=== PATIENT | female | born 1960 | race Caucasian/White ===

== ENCOUNTER 2019-08-14 11:01 | Observation (INO) | payer MEDICARE, MEDICAID, SELFPAY ==
[2019-08-14] VITALS (10 sets, daily range): BP systolic 108–163; BP diastolic 79–100; PULSE 65–79; RESP 14–22; TEMP 36.7–37; O2SAT 92–96; BMI 42.0
--- NOTE | 2019-08-14 11:03 | ED_ITS ---
Entered by Cara Gillis, acting as scribe for Sophie Davidson Marissa HPI - Psych General: Chief Complaint: Psychiatric Symptoms Stated Complaint: mhe Time Seen by Provider: 08/14/19 11:02 Source: patient, EMS and RN notes reviewed Mode of arrival: EMS Limitations: no limitations History of Present Illness: HPI Narrative: 59 yo female presents to ED for a mental health evaluation. The patient's [id number] wanted the pateint evaluated. He said the patient was outside banging her head on the building and that she lives in deplorable conditions. The patient states she is not feeling sick now but she did just get over a cold or flu virus. She denies chronic illness. She confirmed the month/year, the president and knows that she is at [facility] [place] [facility]. MD complaint: altered mental status (reported) Onset (ago): unknown Duration: constant History of same: Yes Relieving factors: none Exacerbating factors: none Context: other (unknown) Associated psychiatric symptoms: none Associated symptoms: Reports no associated symptoms Treatments prior to arrival: none Review of Systems General: Reports: other (negative unless marked) Const: Denies: fever, chills, body aches, fatigue, malaise or diaphoresis Eyes: Denies: change in vision or blurry vision ENMT: Denies: throat pain, painful swallowing, hoarseness, ear pain, ear discharge, Change in hearing or nasal discharge Card: Denies: chest pain, palpitations, irregular heart rhythm, syncope, pre- syncope, shortness of breath on exertion or shortness of breath when lying down Resp: Denies: shortness of breath, productive cough, non-productive cough, wheezing, coughing up blood or chest congestion GI: Denies: abdominal pain, nausea, vomiting, vomiting blood, coffee grounds in vomit, diarrhea, constipation, cramping, blood in stool or black tarry stool : Denies: flank pain, painful urination, urinary frequency, urinary urgency, decreased urine ouput, urinary incontinence or blood in urine Musc: Denies: neck pain, back pain, extremity pain, extremity swelling, joint pain, joint swelling, joint warmth or joint stiffness Skin/Breast: Denies: rash, skin tenderness or yellow skin Neuro: Denies: headache, numbness in extremities, weakness in extremities, changes in sensation, lack of coordination, difficulty walking, dizziness, vertigo or confusion Endo: Denies: excessive thirst, tired all the time, cold intolerance, excessive sweating, flushing or hot flashes Robson/Lymph: Denies: easy bruising, easy bleeding, petechiae or enlarged lymph nodes All/Imm: Denies: hives, throat swelling, tongue swelling, facial swelling or acute wheezing PFSH ED PFSH: Statuses (acute, chronic, etc) shown below reflect problem list status as previously entered and may not be historically accurate Social History Smoking and tobacco status: current some day smoker Physical Exam Const: COMMON NORMALS: no apparent distress, oriented x3 and no limitations EXAM LIMITATIONS: no altered mental status GENERAL APPEARANCE: cooperative, well kempt and well developed ORIENTATION/CONSCIOUSNESS: Yes awake OTHER: Patient is disheveled and appears unkept. HENMT: COMMON NORMALS: normocephalic, head/scalp atraumatic, hearing grossly normal bilaterally, external ears normal, EAC's normal, external nose normal and moist oral mucous membranes HEAD & SCALP: normal to inspection, normocephalic and atraumatic FACE & SINUS: normal facial exam and face symmetric NOSE: external nose normal and nares normal EXTERNAL EAR: Yes external ears normal EXTERNAL AUDITORY CANAL: EAC's normal MOUTH: oral and palatal mucosa normal and tongue normal Eye: COMMON NORMALS: PERRL, EOMs intact bilaterally, conjunctivae normal and no scleral icterus GENERAL EYE: normal appearance of both eyes and normal light reflex CONJUNCTIVA: Yes conjunctivae normal SCLERA: sclerae normal CORNEA: Yes corneas normal PUPIL: Yes PERRL DIRECT OPHTHALMOSCOPY: Yes normal light reflex Neck/C-Spine: COMMON NORMALS: full ROM, no lymphadenopathy, supple, no meningeal signs and no JVD GENERAL: Yes normal visual inspection and Yes trachea midline CERVICAL SPINE: Yes cervical ROM normal Chest: COMMONS NORMALS: inspection of chest normal and palpation of chest normal Resp: COMMON NORMALS: normal respiratory effort, no retractions, no use of accessory muscles and clear to auscultation bilaterally EFFORT & INSPECTION: Yes able to speak in complete sentences AUSCULTATION: clear to auscultation bilaterally Cardio: COMMON NORMALS: no JVD, regular rate, regular rhythm, S1 normal heart sound, S2 normal heart sound, no gallops, no clicks, no murmurs and no rub JUGULAR VENOUS DISTENTION: no JVD RATE: regular rate RHYTHM: regular rhythm HEART SOUNDS: S1 normal and S2 normal GI: COMMON NORMALS: soft to palpation, non-tender, no hepatosplenomegaly and no masses INSPECTION: Yes normal to inspection PALPATION: Yes soft and Yes no hepatosplenomegaly : COMMON NORMALS: Yes no CVA tenderness BLADDER/KIDNEY EXAM: Yes no CVA tenderness Back/Pelvis: COMMON NORMALS: no CVA tenderness, thoracic and lumbar spine normal to inspection, no thoracic nor lumbar tenderness and thoraco-lumbar ROM normal Extremity: COMMON NORMALS: normal to inspection, full ROM, normal capillary refill, no joint enlargement, no clubbing, cyanosis or edema and no calf tenderness Neuro: COMMON NORMALS: oriented x3, CN's II-XII intact bilaterally, moves all extremities, no focal motor deficits and no sensory deficits noted MENINGEAL SIGNS: Yes no meningeal signs Psych: COMMON NORMALS: mental status grossly normal, thought process normal, cooperative, affect normal, speech normal and activity/motor behavior normal APPEARANCE: Yes well kempt SPEECH: Yes normal speech THOUGHT PROCESS: normal thought process Skin: COMMON NORMALS: no rashes or lesions noted, skin turgor normal, no jaundice, no petechiae and no mottling GENERAL SKIN EXAM: no rashes or lesions noted and turgor normal MDM - Psych MDM Narrative: Medical decision making narrative: I talked to the patient's [id number] over the phone who states that she is acting bizarre, talking to animals and has animals living in the house with her. She will get upset at times and will hit her head against things. I see no evidence of trauma. The patient denies all this. After talking with her at length she is agreeable to come into the hospital voluntarily to get medically cleared from a psychiatric perspective. I reviewed the case with Dr. Klein and he understands that this is a voluntary admission and he will see the patient. Currently she is cooperative and I have medically cleared her to go to psych. Lab Data: Labs: Lab Results 08/14/19 08/14/19 08/14/19 Range/Units 11:23 11:23 11:23 WBC 6.0 (4.0-10.0) 10^3/ uL RBC 4.64 (4.1-5.3) 10^6/u L Hgb 15.9 H (11.5-15.3) g/dL Hct 47.7 H (37.0-47.0) % MCV 102.8 H (81-99) fL MCH 34.3 H (28.0-34.0) pg MCHC 33.3 (30.0-36.0) g/dL RDW 12.0 L (12.1-15.1) % Plt Count 199 (130-400) 10^3/c mm MPV 9.6 (7.4-10.4) fL Neut % (Auto) 58.1 % Lymph % (Auto) 30.7 % [place] % (Auto) 9.2 % Eos % (Auto) 1.0 % Baso % (Auto) 0.5 % Neut # (Auto) 3.5 (1.8-7.7) 10^3/u L Lymph # (Auto) 1.8 (0.8-4.8) 10^3/u L [place] # (Auto) 0.6 (0.2-0.9) 10^3/u L Eos # (Auto) 0.1 (0.0-0.8) 10^3/u L Baso # (Auto) 0.0 (0.0-0.1) 10^3/u L Nucleated RBC % (a uto) 0 % Nucleated RBCs # 0.0 /100WBC PT 12.20 (10.5-13.3) SECO NDS INR 0.90 (0.8-1.2) Sodium 138 (136-145) mmol/L Potassium 4.2 (3.5-5.1) mmol/L Chloride 99 (98-107) mmol/L Carbon Dioxide 31 H (22-29) mmol/L Anion Gap 12.2 (5-19) BUN 8 (6-20) mg/dL Creatinine 0.7 (0.5-0.9) mg/dL GFR Calculation 86.2 L (90-130) mL/min Glucose 97 (74-109) mg/dL Calcium 9.6 (8.5-10.5) mg/dL Total Bilirubin 0.2 (0.15-1.2) mg/dL AST 14 (0-32) U/L ALT 16 (0-33) U/L Alkaline Phosphata se 110 H (35-105) IU/L Total Protein 7.9 (6.6-8.7) g/dL Albumin 3.9 (3.5-5.2) g/dL Globulin 4.0 (1.3-4.6) g/dL TSH 0.96 (0.27-4.20) uIU/ mL HCG, Qual (Negative) Urine Color (Yellow) Urine Appearance (CLEAR) Urine pH (5-7) Ur Specific Gravit y (1.005-1.030) Urine Protein (Negative) Urine Glucose (UA) (Normal) Urine Ketones (Negative) Urine Occult Blood (Negative) Urine Nitrate (Negative) Urine Bilirubin (NEGATIVE) Urine Urobilinogen (Negative) mg/dL Ur Leukocyte Rani ase (Negative) Salicylates < 0.3 L (3-10) mg/dL Urine Opiates Scre en (Negative) ng/mL Acetaminophen < 5.0 L (10-30) ug/mL Ur Barbiturates Sc reen (Negative) ng/mL Phenytoin 0.8 L (10-20) ug/mL Valproic Acid 2.8 L (50-100) mcg/mL Carbamazepine 2.0 L (4.0-12.0) ug/mL Ur Phencyclidine S crn (Negative) ng/mL Ur Amphetamines Sc reen (Negative) ng/mL U Benzodiazepines Scrn (Negative) ng/mL Herbster (0.6-1.2) mmol/L Urine Cocaine Scre en (Negative) ng/mL U Marijuana (THC) Screen (Negative) ng/mL Ethyl Alcohol < 10 (0-10) mg/dL 08/14/19 08/14/19 08/14/19 Range/Units 11:23 12:13 12:13 WBC (4.0-10.0) 10^3/ uL RBC (4.1-5.3) 10^6/u L Hgb (11.5-15.3) g/dL Hct (37.0-47.0) % MCV (81-99) fL MCH (28.0-34.0) pg MCHC (30.0-36.0) g/dL RDW (12.1-15.1) % Plt Count (130-400) 10^3/c mm MPV (7.4-10.4) fL Neut % (Auto) % Lymph % (Auto) % [place] % (Auto) % Eos % (Auto) % Baso % (Auto) % Neut # (Auto) (1.8-7.7) 10^3/u L Lymph # (Auto) (0.8-4.8) 10^3/u L [place] # (Auto) (0.2-0.9) 10^3/u L Eos # (Auto) (0.0-0.8) 10^3/u L Baso # (Auto) (0.0-0.1) 10^3/u L Nucleated RBC % (a uto) % Nucleated RBCs # /100WBC PT (10.5-13.3) SECO NDS INR (0.8-1.2) Sodium (136-145) mmol/L Potassium (3.5-5.1) mmol/L Chloride (98-107) mmol/L Carbon Dioxide (22-29) mmol/L Anion Gap (5-19) BUN (6-20) mg/dL Creatinine (0.5-0.9) mg/dL GFR Calculation (90-130) mL/min Glucose (74-109) mg/dL Calcium (8.5-10.5) mg/dL Total Bilirubin (0.15-1.2) mg/dL AST (0-32) U/L ALT (0-33) U/L Alkaline Phosphata se (35-105) IU/L Total Protein (6.6-8.7) g/dL Albumin (3.5-5.2) g/dL Globulin (1.3-4.6) g/dL TSH (0.27-4.20) uIU/ mL HCG, Qual Negative (Negative) Urine Color Yellow (Yellow) Urine Appearance Clear (CLEAR) Urine pH 7 (5-7) Ur Specific Gravit y 1.005 (1.005-1.030) Urine Protein Neg (Negative) Urine Glucose (UA) Norm (Normal) Urine Ketones Negative (Negative) Urine Occult Blood Neg (Negative) Urine Nitrate Negative (Negative) Urine Bilirubin Neg (NEGATIVE) Urine Urobilinogen Norm (Negative) mg/dL Ur Leukocyte Rani ase Negative (Negative) Salicylates (3-10) mg/dL Urine Opiates Scre en (Negative) ng/mL Acetaminophen (10-30) ug/mL Ur Barbiturates Sc reen (Negative) ng/mL Phenytoin (10-20) ug/mL Valproic Acid (50-100) mcg/mL Carbamazepine (4.0-12.0) ug/mL Ur Phencyclidine S crn (Negative) ng/mL Ur Amphetamines Sc reen (Negative) ng/mL U Benzodiazepines Scrn (Negative) ng/mL Herbster 0.1 L (0.6-1.2) mmol/L Urine Cocaine Scre en (Negative) ng/mL U Marijuana (THC) Screen (Negative) ng/mL Ethyl Alcohol (0-10) mg/dL 08/14/19 Range/Units 12:13 WBC (4.0-10.0) 10^3/ uL RBC (4.1-5.3) 10^6/u L Hgb (11.5-15.3) g/dL Hct (37.0-47.0) % MCV (81-99) fL MCH (28.0-34.0) pg MCHC (30.0-36.0) g/dL RDW (12.1-15.1) % Plt Count (130-400) 10^3/c mm MPV (7.4-10.4) fL Neut % (Auto) % Lymph % (Auto) % [place] % (Auto) % Eos % (Auto) % Baso % (Auto) % Neut # (Auto) (1.8-7.7) 10^3/u L Lymph # (Auto) (0.8-4.8) 10^3/u L [place] # (Auto) (0.2-0.9) 10^3/u L Eos # (Auto) (0.0-0.8) 10^3/u L Baso # (Auto) (0.0-0.1) 10^3/u L Nucleated RBC % (a uto) % Nucleated RBCs # /100WBC PT (10.5-13.3) SECO NDS INR (0.8-1.2) Sodium (136-145) mmol/L Potassium (3.5-5.1) mmol/L Chloride (98-107) mmol/L Carbon Dioxide (22-29) mmol/L Anion Gap (5-19) BUN (6-20) mg/dL Creatinine (0.5-0.9) mg/dL GFR Calculation (90-130) mL/min Glucose (74-109) mg/dL Calcium (8.5-10.5) mg/dL Total Bilirubin (0.15-1.2) mg/dL AST (0-32) U/L ALT (0-33) U/L Alkaline Phosphata se (35-105) IU/L Total Protein (6.6-8.7) g/dL Albumin (3.5-5.2) g/dL Globulin (1.3-4.6) g/dL TSH (0.27-4.20) uIU/ mL HCG, Qual (Negative) Urine Color (Yellow) Urine Appearance (CLEAR) Urine pH (5-7) Ur Specific Gravit y (1.005-1.030) Urine Protein (Negative) Urine Glucose (UA) (Normal) Urine Ketones (Negative) Urine Occult Blood (Negative) Urine Nitrate (Negative) Urine Bilirubin (NEGATIVE) Urine Urobilinogen (Negative) mg/dL Ur Leukocyte Rani ase (Negative) Salicylates (3-10) mg/dL Urine Opiates Scre en Negative (Negative) ng/mL Acetaminophen (10-30) ug/mL Ur Barbiturates Sc reen Negative (Negative) ng/mL Phenytoin (10-20) ug/mL Valproic Acid (50-100) mcg/mL Carbamazepine (4.0-12.0) ug/mL Ur Phencyclidine S crn Negative (Negative) ng/mL Ur Amphetamines Sc reen Negative (Negative) ng/mL U Benzodiazepines Scrn Negative (Negative) ng/mL Herbster (0.6-1.2) mmol/L Urine Cocaine Scre en Negative (Negative) ng/mL U Marijuana (THC) Screen Negative (Negative) ng/mL Ethyl Alcohol (0-10) mg/dL Imaging Data^: CXR: Radiologist's impression: [address] [address] XRay Report Signed Patient: Aiyana Neri #: [id number] : 2Acct#:[id number] Age/Sex: 59 / FADM Date: 08/14/19 Loc: ERRoom/Bed: Attending Dr: Ordering Provider/Ordering MD: Sophie Davidson DO Date of Service: 08/14/19 Procedure(s): XR chest 1V portable [id number] Accession Number(s): [id number] Report Number: [id number] WS: [id number] CHEST XRAY TECHNIQUE: Portable chest. CLINICAL INFORMATION: COUGH COMPARISON: August 01, 2017 FINDINGS: Heart: Cardiomegaly. Lungs: Lungs are clear. No consolidation or pleural effusion. No acute pulmonary infiltrates. Bones: Normal visualized bony structures. XR/XR chest 1V portable [id number] IMPRESSION: Cardiomegaly. No acute chest findings. Dictated By:Vipul Oates MD Signed By:Vipul Oates MDSigned Date/Time:08/14/19 1153 DD/ EKG Data^: EKG 1: EKG interpretation date: 08/14/19 EKG interpretation time: 11:44 Interpretation: Normal sinus rhythm at 65 beats a minute, nonspecific ST-T wave changes, normal intervals, no blocks, nonspecific ST-T wave changes. Discharge Plan Discharge Patient Disposition: Placed in Observation Admit Provider: Shane Klein Clinical Impression: Bizarre behavior Condition: Stable Referrals: MALISSA OLIVARES [Family Provider] - Discharge Date/Time: 08/14/19 15:18 Coding Level of Care Code ED Printing Press Operator for Chg Fwd Exam Problem Focused The documentation recorded by the Carlin bee Valerie R, accurately reflects the service I personally performed and the decisions made by Stuart watson Eli N
--- NOTE | 2019-08-14 11:08 | XR_ITS ---
WS: [id number] CHEST XRAY TECHNIQUE: Portable chest. CLINICAL INFORMATION: COUGH COMPARISON: August 01, 2017 FINDINGS: Heart: Cardiomegaly. Lungs: Lungs are clear. No consolidation or pleural effusion. No acute pulmonary infiltrates. Bones: Normal visualized bony structures. XR/XR chest 1V portable [id number] IMPRESSION: Cardiomegaly. No acute chest findings.
--- NOTE | 2019-08-14 11:08 | ECG_ITS ---
Measurements Intervals [place] Rate: 65 P: 49 FL: 141 QRS: 5 QRSD: 98 T: 43 QT: 415 QTc: 434 SINUS RHYTHM NONSPECIFIC T-WAVE ABNORMALITY Compared to ECG 08/01/2017 13:36:16 Left-axis deviation no longer present Left ventricular hypertrophy no longer present T-wave abnormality still present Electronically Signed On 08-14-2019 20:14:11 SPRAY BLENDER by Jim Ramsey M.D. [id number]
--- NOTE | 2019-08-14 11:14 | PC.NURSE ---
pt was not placed in a psych safe room and her clothes were not changed d/t the fact that she was not having SI or HI
[2019-08-14 11:29] LABS: Basophils % 0.5 %; Eosinophils # 0.1 10^3/uL (0.0-0.8); Hematocrit 47.7 % (37.0-47.0); Hemoglobin 15.9 g/dL (11.5-15.3); Lymphocytes # 1.8 10^3/uL (0.8-4.8); Lymphocytes % 30.7 %; Mean Corpuscular HGB Conc 33.3 g/dL (30.0-36.0); Mean Corpuscular Hemoglobin 34.3 pg (28.0-34.0); Mean Corpuscular Volume 102.8 fL (81-99); Mean Platelet Volume 9.6 fL (7.4-10.4); Monocytes # 0.6 10^3/uL (0.2-0.9); Monocytes % 9.2 %; Neutrophils # 3.5 10^3/uL (1.8-7.7); Neutrophils % 58.1 %; Nucleated Red Blood Cells % 0 %; Platelet Count 199 10^3/cmm (130-400); Red Blood Count 4.64 10^6/uL (4.1-5.3)
[2019-08-14 11:56] LABS: Alanine Aminotransferase 16 U/L (0-33); Albumin Level 3.9 g/dL (3.5-5.2); Alkaline Phosphatase 110 IU/L (35-105); Anion Gap 12.2 (5-19); Aspartate Amino Transferase 14 U/L (0-32); Blood Urea Nitrogen 8 mg/dL (6-20); Calcium 9.6 mg/dL (8.5-10.5); Carbon Dioxide 31 mmol/L (22-29); Chloride 99 mmol/L (98-107); Glomerular Filtration Rate 86.2 mL/min (90-130); Glucose 97 mg/dL (74-109); Phenytoin Dilantin 0.8 ug/mL (10-20); Potassium 4.2 mmol/L (3.5-5.1); Sodium 138 mmol/L (136-145); Thyroid Stimulating Hormone 0.96 uIU/mL (0.27-4.20); Total Bilirubin 0.2 mg/dL (0.15-1.2); Total Protein 7.9 g/dL (6.6-8.7); Valproic Acid Level 2.8 mcg/mL (50-100)
[2019-08-14 11:57] LABS: Lithium 0.1 mmol/L (0.6-1.2)
[2019-08-14 12:03] LABS: Acetaminophen < 5.0 ug/mL (10-30); Alcohol Level < 10 mg/dL (0-10); Salicylate < 0.3 mg/dL (3-10)
[2019-08-14 12:25] LABS: Add Urine Microscopic? NO
[2019-08-14 12:30] LABS: Bilirubin Urine Neg (NEGATIVE); Blood Urine Neg (Negative); Glucose Urine UA Norm (Normal); Ketones Urine Negative (Negative); Leukocyte Esterase Urine Negative (Negative); Nitrate Urine Negative (Negative); Protein Urine Neg (Negative); Specific Gravity, Urine 1.005 (1.005-1.030); Urine Appearance Clear (CLEAR); Urine Color Yellow (Yellow); Urobilinogen Urine Norm (Negative); pH Urine 7 (5-7)
[2019-08-14 12:31] LABS: HCG Qualitative Urine. Negative (Negative)
[2019-08-14 12:49] LABS: Amphetamines Screen Urine Negative (Negative); Barbiturates Screen Urine Negative (Negative); Benzodiazepines Screen Urine Negative (Negative); Cocaine Screen Urine Negative (Negative); Opiate Screen Urine Negative (Negative); PCP Screen Urine Negative (Negative); THC Screen Urine Negative (Negative)
[2019-08-14] MEDS: risperiDONE 0.25 mg Tablet 0.5 MG PO (18:38)
[2019-08-15 06:00] VITALS: BP 137/81; PULSE 62; RESP 19; TEMP 36.5; O2SAT 90
[2019-08-15] MEDS: atorvastatin 40 mg Tablet 20 MG PO (09:24)
[2019-08-15] MEDS: metformin XR 500 MG Tablet PO (09:24)
[2019-08-15] MEDS: risperiDONE 0.25 mg Tablet 0.5 MG PO (09:24)
--- NOTE | 2019-08-15 10:25 | P.HP_ITS ---
Providers/Chief Complaint Admitting Physician: Shane Klein MD Chief Complaint: BIZARRE BEHAVIOR HPI NPU History of Present Illness Aiyana Neri is a 59 year old female known to the [facility] from the previous hospitalizations and treatment presented to the emergency room on 96 hour hold reporting aggressive behavior which was not witnessed by the emergency room doctor. She was admitted on the 96 hour hold to the NPU for evaluation. Calls were made to verify the legitimacy of the claims in the hold and this was not accomplished. She was able to speak to the concerns in the affidavit, has recently had a medication follow-up with Mrs. Goss. In left follow-up there were no concerns raised and the medication was reportedly working fine. Social work investigation revealed that she is living in a trailer near her sister which is on by her [id number]. Reportedly she pays rent with her disability check which was done again this month. There are no signs of significant changes based on that med none. She denies any lethality, psychosis, depression, decompensation or any concerns that she would want addressed. She denies any changes not captured in her recent notes at [facility]. She had lived at [place] but left there for reasons we are unclear about. The reports do not suggest that she is living in disarray though we did have a discussion about getting case management so that someone is keeping tabs on any changes in her ability to manage her self-care and ADLs.. Psychiatric history: She's had multiple hospitalizations going back may be 15 years. She's had different medications but has recently been stable on his current medication for some time. Substance abuse history: She denies significant cigarette, alcohol, marijuana or any other illicit drug use. She denies ever having a rehabilitation for a DUI. Aiyana reports she has 5 brothers and 1 sister. She reports she is and has 2 children a daughter born in and a son born in . She reports she receives disability income for schizophrenia. 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 Per her last inpatient evaluation: History of Present Illness Date of Service: Aug 02, 2017 Chief Complaint: Acute psychosis HPI: Ms. Neri is a 57-year-old female who was brought in by ambulance after a welfare check was done by the police. Per affidavit from the [facility]'s department, upon entering the patient's home was found that her residence was overwhelmed with Feces and that the patient did not respond to her name directly. It appeared that she was able to ambulate to the ambulance. It appears that her living conditions are quite deplorable. Patient does live with her , who reported at this time the do not have any running water. Her presentation today the patient is lying comfortable in bed, and even after 2 glasses appears that she continues with significant older that is permeated her skin. She is cooperative with the interview she is able to respond to her name, and she knows that she is [facility]. She is aware that the years 2018 but misses the date. The course of the interview while she responds to some increase, she phase response to others, and at times there are new low to symptoms in response to standard questions. Her thought process seems somewhat disorganized as well. She is able to say that she is not experiencing auditory hallucinations, although she appears to be responding to internal stimuli. She denies any suicidal ideation. Meds NPU Home Medications Medication Instructions Recorded Confirmed Type atorvastatin 20 mg PO DAILY 08/14/19 08/14/19 History metformin 500 mg PO DAILY 08/14/19 08/14/19 History risperidone 0.5 mg PO BID 08/14/19 08/14/19 History Allergies Allergy/AdvReac Type Severity Reaction Status Date / Time No Known Allergies Allergy Verified 08/14/19 11:10 [facility] NPU PFS: Statuses (acute, chronic, etc) shown below reflect problem list status as previously entered and may not be historically accurate Social History Smoking and tobacco status: current some day smoker Mental Status Exam MSE Comments: This is an obese white female possibly morbidly obese with adequate dress limited grooming and eye contact. Poor hygiene with some body odor but possibly due to inability to wash herself due to her size. She has clear hirsutism on her upper lip and chin. No abnormal movements except for mild psychomotor retardation. Cooperative with exam in no acute distress. Speech was slightly decreased rate and volume. Mood described as pretty good, affect slightly subdued. Thought process organized. Thought content: Patient denied any suicidal or homicidal ideation, there were no delusions reported are noted, she denied any auditory or visual hallucinations. Attention and concentration were intact and memory appeared reliable but none were formally tested. She is alert and oriented ?3. Insight and judgment appeared fair. Vitals/I&O/Wt Last Vital Signs Temp 98.3 F 08/15/19 14:00 Pulse 60 08/15/19 14:00 Resp 18 08/15/19 14:00 BP 105/72 08/15/19 14:00 Pulse Ox 92 08/15/19 14:00 Weight last 48 hrs Weight 107.501 kg Data NPU : 08/14/19 11:23 08/14/19 11:23 A&P Assessment and plan (1) Schizophrenia: This is a 59-year-old white female with a clear history of schizophrenia with inpatient hospitalizations in treatments with her last hospitalization in July 2017 who presents with a [address] but without behaviors consistent with the 96 hour hold reporting a desire to return back to her home and continue life as she had been living. She is consistent with her outpatient follow-up and there were no issues raised at her last appointment. 1. Continue current medication. 2. Seeking collateral information to determine whether there is no reason to continue 96 hour hold or this hospitalization. 3. Encourage individual, group and milieu therapy. 4. Continue every 15 minute checks for safety. 5. Will consider discharge today and less clear indication of imminent risk to self or others exists. Status: Acute Code(s): F20.9 - Schizophrenia, unspecified Involuntary Hold Information 96 Hour Hold: 96 Hour Involuntary Admission: No Attestations NPU Medical Necessity Statement*: Inpatient hospitalization does not appear to be medically necessary at this time. We will alert outpatient provider to allow for earlier than usual follow-up appointment. Will continue current medications. Discharge to home. Coding Level of Care Code Acute Case Advocate for Samantha Hamilton Diagnoses Schizophrenia F20.9
[2019-08-15 14:00] VITALS: BP 105/72; PULSE 60; RESP 18; TEMP 36.8; O2SAT 92
--- NOTE | 2019-08-15 16:56 | PM.NDC ---
Diagnoses at Discharge Discharge Diagnosis (1) Schizophrenia: Status: Acute Reason for Visit Reason for Visit: Reason For Visit: BIZARRE BEHAVIOR Brief History: HPI NPU History of Present Illness Aiyana Neri is a 59 year old female known to the [facility] from the previous hospitalizations and treatment presented to the emergency room on 96 hour hold reporting aggressive behavior which was not witnessed by the emergency room doctor. She was admitted on the 96 hour hold to the NPU for evaluation. Calls were made to verify the legitimacy of the claims in the hold and this was not accomplished. She was able to speak to the concerns in the affidavit, has recently had a medication follow-up with Mrs. Goss. In left follow-up there were no concerns raised and the medication was reportedly working fine. Social work investigation revealed that she is living in a trailer near her sister which is on by her [id number]. Reportedly she pays rent with her disability check which was done again this month. There are no signs of significant changes based on that med none. She denies any lethality, psychosis, depression, decompensation or any concerns that she would want addressed. She denies any changes not captured in her recent notes at [facility]. She had lived at [place] but left there for reasons we are unclear about. The reports do not suggest that she is living in disarray though we did have a discussion about getting case management so that someone is keeping tabs on any changes in her ability to manage her self-care and ADLs.. Psychiatric history: She's had multiple hospitalizations going back may be 15 years. She's had different medications but has recently been stable on his current medication for some time. Substance abuse history: She denies significant cigarette, alcohol, marijuana or any other illicit drug use. She denies ever having a rehabilitation for a DUI. Aiyana reports she has 5 brothers and 1 sister. She reports she is and has 2 children a daughter born in and a son born in . She reports she receives disability income for schizophrenia. 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 Per her last inpatient evaluation: History of Present Illness Date of Service: Aug 02, 2017 Chief Complaint: Acute psychosis HPI: Ms. Neri is a 57-year-old female who was brought in by ambulance after a welfare check was done by the police. Per affidavit from the [facility]'s department, upon entering the patient's home was found that her residence was overwhelmed with Feces and that the patient did not respond to her name directly. It appeared that she was able to ambulate to the ambulance. It appears that her living conditions are quite deplorable. Patient does live with her , who reported at this time the do not have any running water. Her presentation today the patient is lying comfortable in bed, and even after 2 glasses appears that she continues with significant older that is permeated her skin. She is cooperative with the interview she is able to respond to her name, and she knows that she is [facility]. She is aware that the years 2018 but misses the date. The course of the interview while she responds to some increase, she phase response to others, and at times there are new low to symptoms in response to standard questions. Her thought process seems somewhat disorganized as well. She is able to say that she is not experiencing auditory hallucinations, although she appears to be responding to internal stimuli. She denies any suicidal ideation. Hospital Course Hospital Course Aiyana presented to the emergency room at mid-concerns that she was having bizarre behaviors. She was admitted to the neuropsych unit to evaluate these concerns as the emergency room was unable to get confirmation or rebuttal of the concerns. On the unit she acclimated to the individual, group and milieu therapies provided. Her medications were continued without incident. During the hospitalization she had routine laboratory studies were within normal limits except for a few outliers. Additionally she had a general medical evaluation which was within normal limits and revealed no new acute processes. Discharge Summary At the time of discharge she was absent lethality, her mood and anxiety were well managed and she was absent signs of psychosis. She endorsed the plan to avoid any drugs of abuse and follow-up with outpatient services as recommended. She was evaluated and deemed to be absence any credible lethality and revealed no symptoms requiring being put on a 96 hour hold so she was allowed to discharge. Involuntary Hold Information 96 Hour Hold: 96 Hour Involuntary Admission: No Mental Status Exam MSE Comments: This is an obese white female possibly morbidly obese with adequate dress limited grooming and eye contact. Poor hygiene with some body odor but possibly due to inability to wash herself due to her size. She has clear hirsutism on her upper lip and chin. No abnormal movements except for mild psychomotor retardation. Cooperative with exam in no acute distress. Speech was slightly decreased rate and volume. Mood described as pretty good, affect slightly subdued. Thought process organized. Thought content: Patient denied any suicidal or homicidal ideation, there were no delusions reported are noted, she denied any auditory or visual hallucinations. Attention and concentration were intact and memory appeared reliable but none were formally tested. She is alert and oriented ?3. Insight and judgment appeared fair. Discharge Data Data Completed and Pending: Completed Studies During Hospitalization Category Date Time Status XR chest 1V prasanna ble [id number] Urgent Exams 08/14/19 11:08 Completed Vitals: Last Vital Signs Temp 98.3 F 08/15/19 14:00 Pulse 60 08/15/19 14:00 Resp 18 08/15/19 14:00 BP 105/72 08/15/19 14:00 Pulse Ox 92 08/15/19 14:00 Discharge Plan Discharge Patient Disposition: Home, Self-Care Condition: Stable Prescriptions: Continued atorvastatin 20 mg tablet 20 mg PO DAILY RF: 0 metformin 500 mg tablet extended release 24 hr 500 mg PO DAILY RF: 0 risperidone 0.5 mg tablet 0.5 mg PO BID RF: 0 Discharge Orders: Discharge Order (Routine); Ordered 08/15/19 Ordered By: Shane Klein Referrals: Edelmira Goss, PMHNP [Staff Physician] - 09/12/19 10:00 am MALISSA OLIVARES [Family Provider] - Discharge Diet: Regular Discharge Activity: Resume usual activity Patient Instructions: Schizophrenia (DC) Activity Restrictions/Additional Instructions: you already had an appointment scheduled for [facility] that is on September 11 at 10:00 a.m. with your current provider Edelmira Goss at [facility]. This will remain the same. A [facility] case management referral was requested though. It will be good to have a corrections caseworker to help you with establishing some goals to help the quality of your life. If you have not heard from [facility] within 1 week of discharge, do call [facility] schedulers to check on the referral for case management at [facility]. Call [phone] to ask about your referral. Discharge Date/Time: 08/15/19 17:28 Discharge Attestations NPU Time Spent in Discharge Care*: less than 30 min Specific Discharge Activities: Specific discharge activities: educating patient, discussing with returned case inspector/social workers/dc planners, documenting/other paperwork and evaluating patient/reviewing data Coding Level of Care Code Acute Material Mixer for Chg Fwd Diagnoses Schizophrenia F20.9
[2019-08-15 17:18] VITALS: BP 105/72; PULSE 60; RESP 18; O2SAT 92
== END 2019-08-15 17:28 | disposition home or self-care (01) ==
LOC: ER 13:05 → NP 14:24
PROVIDERS: Admitting Provider Psychiatry & Neurology Psychiatry; Emergency Provider Emergency Medicine; Visit Provider Psychiatry & Neurology Psychiatry
DX: F20.9 Schizophrenia, unspecified (principal); F17.210 Nicotine dependence, cigarettes, uncomplicated
CPT/HCPCS: 12345; 36415; 71045; 80053; 80156; 80164; 80178; 80185; 80307; 81003; 81025; 84443; 85025; 85610; 93005; 96360; 99283; 99285; A9270; G0378

== ENCOUNTER 2019-09-13 09:40 | Outpatient (CLI) | payer MEDICARE, MEDICAID, SELFPAY ==
--- NOTE | 2019-09-13 09:50 | MM_ITS ---
WS: [id number] BILATERAL DIGITAL SCREENING MAMMOGRAPHY WITH CAD CLINICAL INFORMATION: LT BREAST ASYMMETRY HISTORY: Diagnostic mammogram. Missed Prior 6 month follow-up. COMPARISON: May 24, 2018 TECHNIQUE: Bilateral CC and MLO views. FINDINGS: Scattered fibroglandular densities bilaterally. Again seen is the previously described partially obsc ured nodule measuring 6 mm upper outer left breast suspicious for small lymph node. Ultrasound is pen ding. No suspicious mammographic findings right breast. ULTRASOUND BREAST LEFT TECHNIQUE: Ultrasound left breast focused area of concern. CLINICAL INFORMATION: LT BREAST ASYMMETRY COMPARISON: Ultrasound FINDINGS: Ultrasound left breast 2:00 position. Well-circumscribed oval nodule with central echogenic hilum con sistent with a small lymph node measuring 1.1 x 0.5 x 0.7 CM. No other suspicious lesions. No lesions to target for biopsy. MM/[place] [id number] IMPRESSION: BI-RADS: 2-Benign FOLLOW UP: 1 Year Follow-up Recommend return to annual screening mammography.
== END 2019-09-13 09:41 | disposition home or self-care (01) ==
LOC: RADSHAW 09:46
PROVIDERS: PCP Nurse Practitioner Family; Visit Provider Nurse Practitioner Family
DX: N64.89 Other specified disorders of breast (principal); N63.21 Unspecified lump in the left breast, upper outer quadrant
CPT/HCPCS: 76642; 77066

== ENCOUNTER → 2019-10-17 07:50 | Outpatient (BNVA) | payer MEDICARE, MEDICAID, SELFPAY | PROVIDERS: PCP Nurse Practitioner Family; Visit Provider Nurse Practitioner | DX: F20.9 Schizophrenia, unspecified (principal) | CPT/HCPCS: 99213 ==

== ENCOUNTER → 2020-02-28 07:33 | Outpatient (BNVA) | payer MEDICARE, MEDICAID, SELFPAY | PROVIDERS: PCP Nurse Practitioner Family; Visit Provider Nurse Practitioner | DX: F20.9 Schizophrenia, unspecified (principal) | CPT/HCPCS: 99213 ==

== ENCOUNTER → 2020-06-27 09:05 | Outpatient (BNVA) | payer MEDICARE, MEDICAID, SELFPAY | PROVIDERS: PCP Nurse Practitioner Family; Visit Provider Nurse Practitioner | DX: F20.9 Schizophrenia, unspecified (principal) | CPT/HCPCS: 99213 ==

== ENCOUNTER 2020-09-29 09:12 | Outpatient (CLI) | payer MEDICARE, MEDICAID, SELFPAY ==
--- NOTE | 2020-09-29 09:21 | MM_ITS ---
WS: [id number] Exam: [place] [id number] Date/Time of Exam: 09/29/2020 9:35 AM Reason For Exam: SCREENING VIEWS: MLO and CC views both breasts. Comparison made with prior exam of 11/14/2008, 04/06/2018 and 09/13/2019. Findings: Stable appearing 1 cm nodule at the 2:00 position in the left breast as far back as 2018. No other di screte nodules. No suspicious calcification or architectural distortion. Scattered fibroglandular de nsities. MM/[place] [id number] Impression: BI-RADS: 2-Benign FOLLOW-UP: 1 Year Follow-up This mammogram was also analyzed by the Computer Aided Detection System R2 Imag e Mop Maker.
== END 2020-09-29 09:13 | disposition home or self-care (01) ==
LOC: RADSHAW 09:16
PROVIDERS: PCP Family Medicine; Visit Provider Family Medicine
DX: Z12.31 Encounter for screening mammogram for malignant neoplasm of breast (principal)
CPT/HCPCS: 77067

== ENCOUNTER 2021-11-27 13:48 | Outpatient (CLI) | payer MEDICARE, MEDICAID, SELFPAY ==
--- NOTE | 2021-11-27 13:52 | MM_ITS ---
WS: [id number] Bilateral screening 3D tomosynthesis digital mammogram, 11/27/2021 Clinical Data: SCREENING Comparison: 09/29/2020, 09/13/2019, 04/06/2018, 11/14/2008. Findings: The breast parenchymal pattern shows fibroglandular tissue No spiculated masses or clustered calcific ations are seen. There are no secondary signs of carcinoma. There is a benign nodule in the lateral a spect of the left breast unchanged. MM/[place] [id number] Impression: 1. Negative bilateral mammogram unchanged. 2. Recommend annual screening mammograms. BIRADS: 1-Negative FOLLOW UP: 1 Year Follow-up The CAD maturity checker was used.
== END 2021-11-27 13:49 | disposition home or self-care (01) ==
LOC: RAD 13:49
PROVIDERS: PCP Family Medicine; Visit Provider Family Medicine
DX: Z12.31 Encounter for screening mammogram for malignant neoplasm of breast (principal)
CPT/HCPCS: 77063; 77067

== ENCOUNTER 2022-11-29 16:06 | Outpatient (CLI) | payer MEDICARE, MEDICAID, SELFPAY ==
--- NOTE | 2022-11-29 16:12 | MM_ITS ---
WS: [id number] BILATERAL 3D TOMOSYNTHESIS DIGITAL SCREENING MAMMOGRAPHY WITH CAD CLINICAL INFORMATION: Z12.39 - Encounter for other screening for malignant neop... HISTORY: Screening mammogram. No current complaints. COMPARISON: 2021 TECHNIQUE: Bilateral CC and MLO views. FINDINGS: Scattered fibroglandular densities bilaterally. No suspicious focal mass, asymmetry, calcifications, or architectural distortion. No evidence of malignancy. Stable bilateral oval nodules some of which l ikely represent intramammary lymph nodes. MM/[place] [id number] IMPRESSION: BI-RADS: 2-Benign FOLLOW UP: 1 Year Follow-up Recommend return to annual screening mammography.
== END 2022-11-29 16:07 | disposition home or self-care (01) ==
PROVIDERS: PCP Family Medicine; Visit Provider Family Medicine
DX: Z12.31 Encounter for screening mammogram for malignant neoplasm of breast (principal)
CPT/HCPCS: 77063; 77067

== ENCOUNTER 2023-12-22 15:30 | Outpatient (CLI) | payer MEDICARE, MEDICAID, SELFPAY ==
--- NOTE | 2023-12-22 15:52 | MM_ITS ---
WS: [id number] BILATERAL 3D TOMOSYNTHESIS DIGITAL SCREENING MAMMOGRAPHY WITH CAD CLINICAL INFORMATION: SCREEN HISTORY: Screening mammogram. No current complaints. COMPARISON: 11/29/2022 TECHNIQUE: Bilateral CC and MLO views. FINDINGS: Scattered fibroglandular densities bilaterally. No suspicious focal mass, asymmetry, calcifications, or architectural distortion. No evidence of malignancy. Stable bilateral ovoid nodules likely intrama mmary lymph nodes unchanged. A few incidental punctate calcifications. MM/[place] [id number] IMPRESSION: BI-RADS: 2-Benign FOLLOW UP: 1 Year Follow-up Recommend return to annual screening mammography.
== END 2023-12-22 15:31 | disposition home or self-care (01) ==
LOC: RAD 15:30
PROVIDERS: PCP Family Medicine; Visit Provider Family Medicine
DX: Z12.31 Encounter for screening mammogram for malignant neoplasm of breast (principal); R92.323 Mammographic fibroglandular density, bilateral breasts; R92.1 Mammographic calcification found on diagnostic imaging of breast; N63.41 Unspecified lump in right breast, subareolar; N63.42 Unspecified lump in left breast, subareolar
CPT/HCPCS: 77063; 77067

== ENCOUNTER 2024-12-26 08:18 | Outpatient (CLI) | payer MEDICARE, MEDICAID, SELFPAY ==
--- NOTE | 2024-12-26 08:21 | MM_ITS ---
WS: [id number] SCREENING DIGITAL BREAST TOMOSYNTHESIS MAMMOGRAM WITH CAD HISTORY: SCREENING COMPARISON: 12/22/2023, 11/29/2022, 09/29/2020 Bilateral CC and MLO with tomosynthesis and synthetic mammography submitted. Computer aided detection analyzed. Breast composition: There are scattered areas of fibroglandular density. New slightly lobulated high density mass upper outer quadrant of the LEFT breast near 2:00. Mass measures 8 x 7 x 9 mm and is in a posterior depth. There is an additional well-circumscribed mass which is reidentified in the upper outer quadrant of the RIGHT breast measuring 8 x 9 x 8 mm. Margins are very slightly lobulated. This mass has been present on several prior exams but appears to be slightly increasing in size. Benign calcifications. MM/MM scr tomosynthesis [id number] IMPRESSION: BI-RADS: 0 - Incomplete: Need additional imaging evaluation. FOLLOW UP: Need Additional Imaging RIGHT breast: Spot compression views (CC and MLO). True ML. Ultrasound to follo w if abnormality persists. LEFT breast: Spot compression views (CC and MLO). True ML. Ultrasound to follow if abnormality persists.
== END 2024-12-26 08:19 | disposition home or self-care (01) ==
PROVIDERS: PCP Internal Medicine; Visit Provider Internal Medicine
DX: Z12.31 Encounter for screening mammogram for malignant neoplasm of breast (principal); R92.323 Mammographic fibroglandular density, bilateral breasts; N63.21 Unspecified lump in the left breast, upper outer quadrant; N63.11 Unspecified lump in the right breast, upper outer quadrant; R92.1 Mammographic calcification found on diagnostic imaging of breast
CPT/HCPCS: 77063; 77067

== ENCOUNTER 2025-05-28 08:29 | Outpatient (CLI) | payer MEDICARE, MEDICAID, SELFPAY ==
--- NOTE | 2025-05-28 08:39 | MM_ITS ---
WS: [id number] ADDITIONAL VIEWS BILATERAL MAMMOGRAM WITH DIGITAL BREAST TOMOSYNTHESIS., Bilateral breast ultrasound, limited. HISTORY: ABNORMAL MAMMOGRAM COMPARISON: 12/26/2024, 12/22/2023, 11/29/2022 Spot compression views of each breast in CC, MLO projections and true ML submitted with digital breast tomosynthesis and SM. Breast composition: There are scattered areas of fibroglandular density. RIGHT: Mass is identified in the upper outer quadrant RIGHT breast at a middle depth measuring 12 x 8 x 11 mm. This may be a lymph node. No distortion of soft tissues. LEFT breast: There are 2 similar masses in the upper outer quadrant of the LEFT breast at a middle depth each measuring 8 x 4 x 6 mm. Favor these are probably lymph nodes. Bilateral breast ultrasound, limited. RIGHT: There are a few benign lymph nodes identified. No corresponding mass to correlate with the mammographic abnormality. LEFT: There are a few small benign-appearing lymph nodes. No suspicious masses or shadowing. MM/MM diag [place] tomosynthesis [id number] IMPRESSION: BI-RADS: 3 - Probably Benign. FOLLOW UP: 6 Month Follow-up Recommend diagnostic bilateral mammogram follow-up in 6 months. Favor the breas t masses are benign lymph nodes. By ultrasound there is no corresponding lymph node which correlates to the location or size of the mammographic abnormalities . Therefore 6-month diagnostic mammogram follow-up recommended.
== END 2025-05-28 08:30 | disposition home or self-care (01) ==
LOC: RAD 08:32
PROVIDERS: PCP Internal Medicine; Visit Provider Internal Medicine
DX: R92.8 Other abnormal and inconclusive findings on diagnostic imaging of breast (principal); R92.323 Mammographic fibroglandular density, bilateral breasts; R59.0 Localized enlarged lymph nodes
CPT/HCPCS: 76642; 77062; G0279